=== PATIENT | female | born 1990 ===

== ENCOUNTER 2018-01-04 18:54 | Emergency (ER) | payer OTHER ==
[2018-01-04 19:15] VITALS: RESP 16; TEMP 96.8; O2SAT 100
[2018-01-04] MEDS ORDERED: DIAZEPAM 5 MG TAB PO ONE (19:39)
[2018-01-04] MEDS ORDERED: DIAZEPAM 5 MG TAB ONE (19:41)
[2018-01-04 20:04] VITALS: BP 155/108; PULSE 103
== END 2018-01-04 20:01 | disposition home or self-care (01) ==
LOC: ED 18:54
DX: M62.838 Other muscle spasm (principal)
CPT/HCPCS: 99282; 99283; A9270-GY

== ENCOUNTER 2018-02-20 14:15 | Emergency (ER) | payer OTHER ==
[2018-02-20 14:41] VITALS: TEMP 98.5
[2018-02-20 15:25] VITALS: RESP 19
[2018-02-20 15:27] LABS: LACTIC ACID 3.7 mMol/L (0.0-2.0)
[2018-02-20 15:34] LABS: HEMATOCRIT 43 % (35-47); HEMOGLOBIN 14.3 gm/dl (12.0-15.5); MEAN CORPUSCULAR HEMOGLOBIN 31.1 pg (27.0-32.0); MEAN CORPUSCULAR HGB CONC 33.3 gm/dl (32.0-36.0); MEAN CORPUSCULAR VOLUME 94 fL (81-99)
[2018-02-20 15:39] LABS: ALBUMIN 3.5 gm/dl (3.4-5.0); ALKALINE PHOSPHATASE 64 IU/L (46-116); ALT 46 IU/L (14-63); AST 46 IU/L (15-37); BILIRUBIN,TOTAL 0.7 mg/dl (0.2-1.0); BLOOD UREA NITROGEN 10 mg/dl (7-18); CALCIUM 8.7 mg/dl (8.5-10.1); CARBON DIOXIDE 23.8 mEq/L (21-32); CHLORIDE 103 mMol/L (98-107); CREATININE 0.67 mg/dl (0.60-1.00); GLUCOSE 83 mg/dl (74-106); POTASSIUM 3.6 mMol/L (3.5-5.1); SODIUM 139 mMol/L (136-145); TOTAL PROTEIN 6.2 gm/dl (6.4-8.2); TROP I < 0.017 ng/ml (0.000-0.056)
[2018-02-20 15:51] LABS: APPEARANCE,URINE Clear; BILIRUBIN,URINE NEGATIVE (NEGATIVE); COLOR,URINE Yellow; GLUCOSE, URINE (UA) NEGATIVE (NEGATIVE); KETONES,URINE NEGATIVE (NEGATIVE); LEUKOCYTE ESTERASE ,URINE NEGATIVE (NEGATIVE); NITRATE,URINE NEGATIVE (NEGATIVE); OCCULT BLOOD,URINE NEGATIVE (NEG-TRACE); PH,URINE 7.5; UROBILINOGEN,URINE 0.2 (0.2-1.0 EU)
[2018-02-20 15:58] LABS: BACTERIA 1+ (< 1+); CRYSTALS NEGATIVE (0-3 AVE/HPF); RBC,URINE 0-2 (0-3AV/HPF)
[2018-02-20 16:07] LABS: BAND NEUTROPHILS % (MANUAL) 4 %; BASOPHILS % (MANUAL) 0 % (0-3); EOSINOPHILS % (MANUAL) 1 % (0-9); LYMPHOCYTES % (MANUAL) 23 % (10-50); MONOCYTES % (MANUAL) 3 % (0-12); NEUTROPHILS % (MANUAL) 69 % (37-80); NORMAL RBCS PRESENT
[2018-02-20 16:52] VITALS: BP 128/72; PULSE 88; O2SAT 100
== END 2018-02-20 17:10 | disposition home or self-care (01) ==
LOC: ED 14:15
DX: K21.0 Gastro-esophageal reflux disease with esophagitis (principal)
CPT/HCPCS: 36415; 71046; 80053; 81001; 84484; 84703; 85007; 85027; 93005; 99283; 99284

== ENCOUNTER 2018-05-01 11:14 | Day surgery (SDC) | payer BC ==
[~2018-05-01 11:14] MED LIST: FENTANYL 100MCG/2ML SOL ONE; PROPOFOL 500 MG/50 ML EMU IV ONE
[2018-05-01 12:08] VITALS: O2SAT 99
[2018-05-01 12:25] VITALS: BP 121/83; PULSE 75; RESP 18; TEMP 97.4
== END 2018-05-01 13:04 | disposition home or self-care (01) ==
LOC: SURG 11:14
PROVIDERS: ATTEND Surgery
DX: K21.9 Gastro-esophageal reflux disease without esophagitis (principal); Q39.9 Congenital malformation of esophagus, unspecified; L53.8 Other specified erythematous conditions; K29.70 Gastritis, unspecified, without bleeding
CPT/HCPCS: 84703; 99001; J3010; J2704